=== PATIENT | female | born 1960 | race Caucasian/White ===

== ENCOUNTER 2016-10-28 23:55 | Emergency (ER) | payer OTHER ==
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
[~2016-10-28 23:55] MED LIST: ACETAMINOPHEN PO; ASPIRIN EC81 M1 PO; HYDROCODONE-APA1 T54 PO; LEVAQUIN PO; LOSARTAN-HCTZ1 EAC3 PO; SIMVASTATIN10 MG PO
== END 2016-10-29 06:00 | disposition home or self-care (01) ==
LOC: CED 23:55
DX: S00.83XA Contusion of other part of head, initial encounter (principal); S10.93XA Contusion of unspecified part of neck, initial encounter; Y04.0XXA Assault by unarmed brawl or fight, initial encounter
CPT/HCPCS: 70360; 70450; 71020; 99284

== ENCOUNTER 2016-11-07 08:20 | Inpatient (IN) | payer OTHER ==
--- NOTE | ~2016-11-07 | OR ---
Unit #: [id number] #: [id number] Patient: JAMMIE GANDHI [id number] [address] [place], [place] [address] [id number] I MR#: [id number] NAME: JAMMIE GANDHI ROOM: [facility] Date of Procedure: 11/07/2016 Admission Date: 11/07/2016 Surgeon: Ad Espinosa M.D. : 1960 Attending Physician: Ad Espinosa M.D. Referring Physician: Ad Espinosa M.D. Primary Care Physician: José Juarez M.D. OPERATIVE REPORT PREOPERATIVE DIAGNOSIS Unstable right total knee. POSTOPERATIVE DIAGNOSIS Unstable right total knee. PROCEDURE PERFORMED Revision of right total knee. ASSISTANTS Jada and Audra. ANESTHESIA Adductor canal block plus general. ESTIMATED BLOOD LOSS About 100 to 150 mL. DESCRIPTION OF PROCEDURE The patient was brought to the holding room, given 2 g of Ancef. This will be continued postop, but discontinued within 23 hours the start time of surgery. The patient then had an adductor canal block performed. She was brought back to the operating room, given a general anesthetic. Tourniquet was placed around the right leg. The right leg was prepped and draped in a sterile fashion. Tourniquet was inflated to 250. The previous skin incision was opened, subcutaneous dissected away and a medial arthrotomy was performed. Clear fluid was encountered. This was cultured. The patella was subluxed laterally and the previous polyethylene was removed. We then loosened the femoral component and removed this from the distal femur with very little bone loss. After this was done, the tibia was subluxed anteriorly. The tibial component was removed and then the cement was removed from the tibial canal. Once this was done, the tibia was reamed up to a size 12. A conical reamer for the M.B.T. sleeve was used and then the broaches were used for the M.B.T. sleeve up to a size 45. The tibia was sized at a 2.5. The previous femur was a size 3. We reamed the femur up to a 14 x 75. The conical reamer was used and then the broaches were used for the Rudy femoral sleeve up to a 40. We then made box cut for the TC3. The trial was assembled and it fit appropriately. Trial reduction was carried out. We found that we needed a 12.5 insert to give appropriate stability. The patella was inspected and was in good condition and was not loose. We then removed all the trials. The ropivacaine mixture was used. The real components Unit #: [id number] #: [id number] Patient: JAMMIE GANDHI were opened and assembled. The cement was mixed and then the tibia was impacted first cementing under the tray only. The femur was then impacted cementing under the femoral component only. Once the cemented had hardened, it was judged that the 12.5 insert was the appropriate thickness, so the TC3, size 3, 12.5 mm thick insert was opened and applied to the tibial tray. After this was done, the tourniquet was released. Hemostasis was obtained and the wound was closed using 0 Ethibond in the arthrotomy, 0 and 2-0 Vicryl in the subcutaneous, and julio in the skin. surgical assistant certified, Avinash Elias was present throughout the entire case. Dictated by... Samson Santa/naveed TD: 11/07/2016 21:02 JOB #: [id number] OPERATIVE REPORT X Ad Espinosa MD X PROCEDURE OPERATIVE NOTE
--- NOTE | ~2016-11-07 | DS ---
Unit #: [id number] #: [id number] Patient: JAMMIE GANDHI [id number] [facility] [address] [place], [place] [address] [id number] I MR#: [id number] NAME: JAMMIE GANDHI ROOM: 449 Age: 56 Sex: F Admission Date: 11/07/2016 : 1960 Discharge Date: 11/09/2016 Attending Physician: Ad Espinosa M.D. Referring Physician: Ad Espinosa M.D. Primary Care Physician: José Juarez M.D. DISCHARGE SUMMARY CONSULTING PHYSICIAN HIPS for medical management. REASON FOR ADMISSION Right knee pain with flexion instability. PROCEDURE Right total knee revision. HOSPITAL COURSE The patient was admitted to [facility] with a history of right knee pain and instability. The patient had undergone the above procedure and patient tolerated the procedure well with no apparent complications. Today, the patient is in stable condition. Her temperature is 98.3, blood pressure 125/67, heart rate was 80 and regular, respirations 20. Her incision is healing well and neurovascular exam is intact. She had 2+ pulses in her lower extremities. The plan will be to discharge her to rehab later today. The thought is [facility]. [facility]. PERTINENT LABS Her PT is 17.4, INR is 1.6. Hemoglobin was not done but we will order that stat and will need a call on that if it is less than 8.5. MEDICATIONS Per Med Rec list. She will be on her regular home medications with exception of Coumadin for DVT prophylaxis and [place] 10 for pain control. FOLLOWUP INSTRUCTIONS The patient will need PT/INRs done on 11/10, 11/11 and then every Monday and thereafter. Call the results to [phone] or [phone] fax to Sep. The patient needs skin julio removed on 11/24/2016 and Steri-Strips placed 1/4 inch apart x1 week. The patient should not shower until the day after julio removed. The patient should wear JONATHAN hose during the day and off at night. The patient should not drive until seen by Dr. Espinosa on December 20 at 10:10. The patient will participate in physical therapy including active and active assist, range of motion and strengthening, progressive ambulation, begin with a walker and progress to a cane as tolerated. Unit #: [id number] #: [id number] Patient: JAMMIE GANDHI Dictated by.Nate Elias P.A.-C- for Samson Santa/juan TD: 11/09/2016 08:31 JOB #: [id number] DISCHARGE SUMMARY X X DISCHARGE SUMMARY
[2016-11-07 09:20] LABS: URINE SOURCE CATH
[2016-11-07 09:24] LABS: URINE APPEARANCE CLEAR; URINE BILIRUBIN NEG (NEG); URINE BLOOD 1+ (NEG); URINE COLOR YELLOW; URINE GLUCOSE NEG (NEG); URINE KETONE NEG (NEG); URINE LEUKOCYTE ESTERASE NEG (NEG); URINE NITRATE NEG (NEG); URINE PH 5.5 (5-8); URINE PROTEIN NEG (NEG)
[2016-11-07 09:26] LABS: URINE BACTERIA AUWI NEG (NEGATIVE); URINE SQUAMOUS EPITHELIAL CELL NONE SEEN /[HPF]; UWBCS1 AUWI 0-2 (0-5)
[2016-11-07 09:27] LABS: CULTURE INDICATED? NO
[2016-11-08 03:23] LABS: HEMATOCRIT 28.4 % (35.0-45.0); HEMOGLOBIN 9.9 gm/dL (12.0-16.0)
[2016-11-08 03:45] LABS: INR 1.3; PROTHROMBIN TIME (PATIENT) 14.2 SECONDS (9.6-11.5)
[2016-11-08 03:46] LABS: BLOOD UREA NITROGEN 14 mg/dL (9-23); CALCIUM SERUM 8.5 mg/dL (8.4-10.2); CARBON DIOXIDE 30 mmol/L (22-31); CHLORIDE 101 mmol/L (100-111); CREATININE SERUM 0.7 mg/dL (0.6-1.4); GLOM FILT RATE Estimated ABOVE60 mL/min (>60); GLUCOSE FASTING 116 mg/dL (70-110); MAGNESIUM 1.7 mg/dL (1.6-3.0); POTASSIUM 3.9 mmol/L (3.5-5.1); SODIUM 137 mmol/L (135-145)
[2016-11-09 03:08] LABS: INR 1.6; PROTHROMBIN TIME (PATIENT) 17.4 SECONDS (9.6-11.5)
[2016-11-09 03:11] LABS: BLOOD UREA NITROGEN 10 mg/dL (9-23); BUN/CREATININE RATIO 16.66; CALCIUM SERUM 8.8 mg/dL (8.4-10.2); CARBON DIOXIDE 26 mmol/L (22-31); CHLORIDE 103 mmol/L (100-111); CREATININE SERUM 0.6 mg/dL (0.6-1.4); GLOM FILT RATE Estimated ABOVE60 mL/min (>60); GLUCOSE FASTING 138 mg/dL (70-110); POTASSIUM 3.5 mmol/L (3.5-5.1); SODIUM 137 mmol/L (135-145)
[2016-11-09 08:03] LABS: HEMOGLOBIN 11.3 gm/dL (12.0-16.0)
== END 2016-11-09 12:20 | DRG 467 ==
LOC: CSUR 08:20 → CPACUOF 10:00 → C4B 13:55
PROVIDERS: Nurse Practitioner; Orthopaedic Surgery
PROC: 0SPC09Z Removal of Liner from Right Knee Joint, Open Approach (ICD-10-PCS; 2016-11-07)
PROC: 0SPC0JZ Removal of Synthetic Substitute from Right Knee Joint, Open Approach (ICD-10-PCS; 2016-11-07)
PROC: 0SUV09Z Supplement Right Knee Joint, Tibial Surface with Liner, Open Approach (ICD-10-PCS; 2016-11-07)
PROC: 0SRC0J9 Replacement of Right Knee Joint with Synthetic Substitute, Cemented, Open Approach (ICD-10-PCS; principal; 2016-11-07 11:00)
DX: T84.022A Instability of internal right knee prosthesis, initial encounter (principal); D62 Acute posthemorrhagic anemia; I10 Essential (primary) hypertension; Y79.2 Prosthetic and other implants, materials and accessory orthopedic devices associated with adverse incidents; E78.5 Hyperlipidemia, unspecified; R73.9 Hyperglycemia, unspecified; T38.0X5A Adverse effect of glucocorticoids and synthetic analogues, initial encounter; K21.9 Gastro-esophageal reflux disease without esophagitis; M54.30 Sciatica, unspecified side; M17.0 Bilateral primary osteoarthritis of knee; Z96.651 Presence of right artificial knee joint
CPT/HCPCS: 80048; 81003; 83735; 85014; 85018; 85610; 87070; 87075; 87205; 94010; 94760; 97110; 97116; 97162; 97166; 97530; 97535; C1713; C1776; G8978-GP; G8979-GP; G8980-GP; G8987-GO; G8988-GO; J0131; J0171; J0330; J0690; J0735; J1100; J1650; J1885; J2175; J2250; J2405; J2710; J2795; J3010